=== PATIENT | female | born 1975 | race Caucasian/White ===

== ENCOUNTER 2017-05-10 05:57 | Emergency (ER) | payer SELFPAY ==
[~2017-05-10] VITALS: Ht 162.6 cm; Wt 61.2 kg
[2017-05-10 06:14] VITALS: BP 139/77
--- NOTE | 2017-05-10 06:34 | PHYS DOC ---
General Chief Complaint: EARACHE/EAR PAIN Stated Complaint: EAR PROBLEM Time Seen by MD: 06:23 Source: patient Exam Limitations: no limitations Problems: History of Present Illness Initial Comments Patient is a 42-year-old female who comes to the ED complaining of ear pain. Patient states that she developed severe right-sided ear pain yesterday worsening throughout the day. She awoke this morning with having intermittent periods of sleep interrupted by ear pain, noticed pinkish drainage from the right ear this morning. She says she can feel a whooshing or blowing as if it's the ocean in her ear, denies fever chills sweats or myalgias no headache nausea vomiting neck stiffness rash or other associated symptoms. No pre-arrival treatment patient is normally healthy she takes no daily medications. Timing/Duration: yesterday Severity: severe Location: ear (R) Prearrival Treatment: over the counter meds Modifying Factors: improves with other Associated Symptoms: change in hearing, ear drainage Allergies: Coded Allergies: No Known Drug Allergies (Unverified , 05/10/17) Past Medical History Medical History: no pertinent history Surgical History: noncontributory ( section 4) Social History Smoker: non-smoker Alcohol: none Drugs: none Constitutional: denies chills, denies diaphoresis, denies fever, denies malaise Eyes: denies blindness, denies blurred vision Ears: see HPI Nose: denies congestion, denies epistaxis Throat: denies pain, denies neck stiffness Respiratory: denies cough, denies shortness of breath Gastrointestinal: denies nausea, denies vomiting Neurological: denies headache, denies paresthesia Physical Exam General Appearance: WD/WN, moderate distress Eyes: bilateral eye normal inspection, bilateral eye PERRL, bilateral eye EOMI Ears: right ear other (right TM erythematous with perforation at 7 o'clock position and dried purulent material in the canal. Otherwise there is no canal swelling or erythema), left ear TM normal, bilateral ear auricle normal, bilateral ear canal normal Nose: normal inspection Mouth/Throat: normal mouth inspection, pharynx normal Neck: non-tender, full range of motion, supple Cardiovascular/Respiratory: normal breath sounds, no respiratory distress Neurologic/Psychiatric: cut filer II-XII nml as tested, oriented x 3 Skin: normal color, warm/dry Orders, Labs, Meds I discussed findings with the patient and the need for ENT follow-up. I discussed qekp-hbh-vuarvna prescription medications and the need to keep the ear dry except for meds. I discussed signs and symptoms to monitor for as well as indications for urgent return to the department. Patient's questions were answered and she expressed agreement and understanding the treatment plan. She is driving so Tylenol 3 dispensed as a start pack, amoxicillin 1 g given by mouth. Departure Time of Disposition: 06:30 Disposition: 01 HOME, SELF-CARE Diagnosis: R Acute suppurative OM with TM rupture Condition: GOOD Patient Instructions: Eardrum Perforation, Lyzj-rm-[id number], Otitis Media with Effusion Additional Instructions: Please review the patient education materials given by ED staff. No under water submersion right ear absolutely dry, use cotton balls for showers. Only prescribed medications should enter the external ear canal until seen by upholsterer limousine and hearse. Jbed-[id number] ibuprofen for baseline discomfort. A Tylenol 3 starter pack was dispensed to you, take 1-2 every 6 hours with food for severe pain. Prescriptions: Floxin otic, amoxicillin, [place] 5 mg quantity 10 Take medications with food. Take byrm-bgy-fbmtyhz stool softeners and increase fluid intake to avoid constipation from the pain medications. You will need to follow-up Ear, Nose, and Throat specialist. You may choose to follow up with ENT specialists: [phone] call Friday to schedule next available appointment. Return to ED with new or changing symptoms. GIOVANNY CAMILO DO May 10, 2017 06:34
[2017-05-10] MEDS ORDERED: AMOXICILLIN 250 MG CAPSULE PO ONE (07:00)
[2017-05-10] MEDS ORDERED: ACETAMINOPHEN/CODEINE 300/30MG 4TABLET STARTPACK. PO ONE (07:00)
== END 2017-05-10 07:00 | disposition home or self-care (01) ==
LOC: ER 05:57
DX: H66.011 Acute suppurative otitis media with spontaneous rupture of ear drum, right ear (principal)
CPT/HCPCS: 99283

== ENCOUNTER 2018-12-20 13:15 | Emergency (ER) | payer BC ==
[2018-12-20 13:27] VITALS: BP 155/45
--- NOTE | 2018-12-20 13:48 | PHYS DOC ---
Past History Past Medical History: No Pertinent History Past Surgical History: Alcohol Use: None Drug Use: None Adult General Chief Complaint Chief Complaint: VAGINAL BLEEDING HPI HPI 43-year-old female presents with vaginal bleeding. The patient is scared that she has cervical cancer because her period has started one earlier that supposed to. This has never happened to her before. She is also had some low back pain. She asked me several times if these are signs of cervical cancer. She has not had a Pap smear about 9 years. She's never had a positive Pap smear for HPV for dysplasia. She has been monogamous in the past. She has not had sexual intercourse last 4 years. She denies fever or chills. She is very concerned. Review of Systems Review of Systems Constitutional: Denies fever or chills [] Eyes: Denies change in visual acuity, redness, or eye pain [] HENT: Denies nasal congestion or sore throat [] Respiratory: Denies cough or shortness of breath [] Cardiovascular: No additional information not addressed in HPI [] GI: Denies abdominal pain, nausea, vomiting, bloody stools or diarrhea [] : Denies dysuria or hematuria. Vaginal bleeding [] Musculoskeletal: Denies back pain or joint pain [] Integument: Denies rash or skin lesions [] Neurologic: Denies headache, focal weakness or sensory changes [] Endocrine: Denies polyuria or polydipsia [] All other systems were reviewed and found to be within normal limits, except as documented in this note. Allergies Allergies Allergies Coded Allergies Type Severity Reaction Last Updated Verified No Known Drug Allergies 05/10/17 No Physical Exam Physical Exam Constitutional: Well developed, well nourished, no acute distress, non-toxic appearance. [] HENT: Normocephalic, atraumatic, bilateral external ears normal, oropharynx moist, no oral exudates, nose normal. [] Eyes: PERRLA, EOMI, conjunctiva normal, no discharge. [] Neck: Normal range of motion, no tenderness, supple, no stridor. [] Cardiovascular:Heart rate regular rhythm, no murmur [] Lungs & Thorax: Bilateral breath sounds clear to auscultation [] Abdomen: Bowel sounds normal, soft, no tenderness, no masses, no pulsatile masses. [] Skin: Warm, dry, no erythema, no rash. [] Back: No tenderness, no CVA tenderness. [] Extremities: No tenderness, no cyanosis, no clubbing, ROM intact, no edema. [] Neurologic: Alert and oriented X 3, normal motor function, normal sensory f unction, no focal deficits noted. [] Psychologic: Affect normal, judgement normal, mood anxious. : Normal external exam. Blood coming from the cervix. No obvious cervical or vaginal abnormalities. Sub-optimal exam due to blood. [] Current Patient Data Vital Signs Vital Signs Date Time Temp Pulse Resp B/P (MAP) Pulse Ox O2 Delivery O2 Flow Rate FiO2 12/20/18 13:27 124 18 95 Room Air EKG EKG [] Radiology/Procedures Radiology/Procedures [] Impressions: Supine AP abdomen HISTORY: Constipation. FINDINGS: Mild stool in the colon. Bowel gas pattern does not appear obstructive. Small bowel is relatively gasless. No evidence of a pathologic calcification. Bones appear grossly intact. IMPRESSION: No acute radiographic findings. Electronically signed by: Will Wynn MD (12/20/2018 2:25 PM) [facility] DICTATED AND SIGNED BY: WILL WYNN MD DATE: 12/20/18 1425 CC: ANDIE DAMON DO; PCP,NO ~ Course & Med Decision Making Course & Med Decision Making Pertinent Labs and Imaging studies reviewed. (See chart for details) The patient's bleeding appears to be coming from the cervix. I do not see any obvious displaced of the cervix. I explained to the patient that this is not an adequate exam. If she is concerned about cervical dysplasia she needs and proper Pap smear by [facility]. She stated verbal understanding. Her wet prep and GC chlamydia are pending. Her urinalysis is pending. She is not . Her KUB shows mild stool in the colon without evidence of obstruction. She does have stool in the rectal vault. Her urinalysis is negative for nitrates and leukocyte esterase. I will not treat her white cells as she is contamination with blood. The patient's wet prep is negative for Trichomonas, bacterial vaginosis, and yeast. I believe the patient is just having an early menstual cycle. I've explained to her that this can be normal as she purges menopause. She will follow up with [facility] as needed. [] Dragon Disclaimer Dragon Disclaimer This electronic medical record was generated, in whole or in part, using a voice recognition dictation system. Departure Departure: Impression: Primary Impression: Abnormal menstrual cycle Disposition: HOME, SELF-CARE Condition: STABLE Referrals: [facility] (PCP) Patient Instructions: Metrorrhagia, Celi-[id number] ANDIE DAMON DO Dec 20, 2018 13:48
[2018-12-20 14:23] LABS: CLARITY,URINE BLOODY; COLOR,URINE RED
[2018-12-20 14:24] LABS: GLUCOSE,URINE NEG (NEG); NITRITE,URINE NEG (NEG); RBC,URINE >40 /HPF (0-2); UROBILINOGEN,URINE 0.2 mg/dL (0.2 mg/dL)
[2018-12-20 14:25] LABS: BACTERIA,URINE FEW /HPF (0-FEW); SQUAMOUS EPITHELIAL CELL,UR OCC /LPF; WBC,URINE 20-40 /HPF (0-4)
--- NOTE | 2018-12-20 14:28 | RAD ---
Supine AP abdomen HISTORY: Constipation. FINDINGS: Mild stool in the colon. Bowel gas pattern does not appear obstructive. Small bowel is relatively gasless. No evidence of a pathologic calcification. Bones appear grossly intact. IMPRESSION: No acute radiographic findings. Electronically signed by: Rodercik Wynn MD (12/20/2018 2:25 PM) [facility] [place]
[2018-12-24 00:06] LABS: CHLAMYDIA PROBE Negative (Negative)
== END 2018-12-20 14:55 | disposition home or self-care (01) ==
LOC: ER 13:15
DX: N92.5 Other specified irregular menstruation (principal); M54.5 Low back pain; Z98.890 Other specified postprocedural states
CPT/HCPCS: 74018; 81001; 81025; 87086; 87491; 87591; 99285; Q0111; 36415

== ENCOUNTER → 2018-12-22 | Outpatient (CLI) | payer BC ==
[2018-12-20 13:27] VITALS: BP 155/45
--- NOTE | 2018-12-22 10:18 | RAD ---
Examination: Ultrasound pelvis HISTORY: History of irregular menstruation COMPARISON: None available FINDINGS: The uterus measures 7.5 x 4.7 x 3.1 cm. Endometrium measures 5 mm in thickness. The right ovary measures 2.2 x 1.4 x 1.3 cm. The left ovary measures 2.0 x 1.2 x 1.5 cm. Blood flow identified in the right and left ovaries. A small follicle identified in the right ovary. IMPRESSION: Unremarkable visualized exam. Electronically signed by: David Mcnulty MD (12/22/2018 10:15 AM) [id number]
== END | disposition home or self-care (01) ==
LOC: US 09:09
PROVIDERS: ATTEND Physician Assistant
DX: N83.8 Other noninflammatory disorders of ovary, fallopian tube and broad ligament (principal)
CPT/HCPCS: 76830; 76856

== ENCOUNTER 2020-07-29 20:25 | Emergency (ER) | payer BC ==
[~2020-07-29] VITALS: Ht 162.6 cm; Wt 70.0 kg
--- NOTE | 2020-07-29 21:24 | PHYS DOC ---
Past History Past Medical History: No Pertinent History Past Surgical History: Alcohol Use: None Drug Use: None Adult General Chief Complaint Chief Complaint: DENTAL PROBLEM HPI HPI Patient is a 45-year-old female who presents with dental pain. States that her filling fell out a couple of days ago when she began having pain, 7 out of 10, sharp in nature. States she is taken Tylenol with only minimal relief but has not tried ibuprofen or Orajel. Denies fevers, pain or trouble swallowing, nausea, vomiting. Review of Systems Review of Systems Review of systems otherwise unremarkable except noted in HPI Allergies Allergies Allergies Coded Allergies Type Severity Reaction Last Updated Verified No Known Drug Allergies 05/10/17 No Physical Exam Physical Exam Constitutional: Well developed, well nourished, no acute distress, non-toxic appearance. [] HENT: Normocephalic, atraumatic, bilateral external ears normal, oropharynx moist, no oral exudates, nose normal back, back left molar appears to have filling missing. [] Neck: Normal range of motion, no tenderness, supple, no stridor. [] Neurologic: Alert and oriented X 3, normal motor function, normal sensory function, no focal deficits noted. [] Psychologic: Affect normal, judgement normal, mood normal. [] EKG EKG [] Radiology/Procedures Radiology/Procedures [] Heart Score C/O Chest Pain: No Risk Factors: Risk Factors: DM, Current or recent (<one month) smoker, HTN, HLP, family history of CAD, obesity. Risk Scores: Risk Factors: DM, Current or recent (<one month) smoker, HTN, HLP, family history of CAD, obesity. Course & Med Decision Making Course & Med Decision Making Patient is a 45-year-old female presents with dental pain Vital signs not concerning. Physical exam noted above. Started on antibiotics in the ED. Given 1 dose of pain medicine. Advised on pain management at home including Tylenol, ibuprofen and Orajel. Advised to call dentist first thing Friday morning to set up an appointment for root canal or tooth removal. Gave strict return precautions to the ED. Patient grateful, verbalized understanding and agree with plan of discharge. [] Dragon Disclaimer Dragon Disclaimer This electronic medical record was generated, in whole or in part, using a voice recognition dictation system. Departure Departure: Impression: Primary Impression: Pain, dental Disposition: DC HOME SELF CARE/HOMELESS Condition: GOOD Referrals: JYOTHI LYN MD (PCP) Patient Instructions: Dental Pain, [id number] Additional Instructions: Please read all of the attached information. As discussed, please begin a Tylenol, ibuprofen and Orajel regimen as described. Please call your dentist first thing Friday morning to discuss your ED visit and need for either root canal or tooth removal versus replacing the feeling. Please come back to the ED with new or concerning symptoms. Scripts Amoxicillin (AMOXICILLIN) 500 Mg Capsule 1 CAP PO BID for dental infection for 7 Days, #14 CAP Prov: DICKSON HERNANDEZ MD 07/29/20 DICKSON HERNANDEZ MD Jul 29, 2020 21:24
[2020-07-29 21:27] VITALS: BP 123/81
[2020-07-29] MEDS ORDERED: AMOX500C PO (21:33)
[2020-07-29] MEDS ORDERED: AMOXICILLIN 250 MG CAPSULE PO ONE (21:45)
[2020-07-29] MEDS ORDERED: IBUPROFEN 800 MG TABLET. PO ONE (22:00)
[2020-07-29] MEDS ORDERED: oxyCODONE/APAP 5/325 1 TAB TABLET PO ONE (22:00)
== END 2020-07-29 21:40 | disposition home or self-care (01) ==
LOC: ER 20:25
DX: K08.89 Other specified disorders of teeth and supporting structures (principal)
CPT/HCPCS: 99284